=== PATIENT | female | born 1940 | race Caucasian/White ===

== ENCOUNTER 2018-05-13 12:30 | Emergency (ER) | payer MEDICARE, BC, OTHER ==
[2018-05-13 15:37] LABS: BASO % 0.2 % (0.0-1.0); EOS % 0.3 % (0.0-3.0); HEMATOCRIT 40.9 % (36.0-47.0); HEMOGLOBIN 13.4 g/dl (12.0-15.5); IMMATURE GRANULOCYTE % 0.4 % (0-3.0); LYMPH # 1.2 10^3/uL (1.5-4.5); LYMPH % 10.8 % (24.0-44.0); MEAN CORPUSCULAR HEMOGLOBIN 27.8 pg (27.0-33.0); MEAN CORPUSCULAR HGB CONC 32.8 g/dl (32.0-36.5); MEAN CORPUSCULAR VOLUME 84.9 fl (80.0-96.0); MONO # 0.8 10^3/uL (0.0-0.8); MONO % 7.2 % (0.0-5.0); NEUTROPHILS # 9.2 10^3/uL (1.8-7.7); NEUTROPHILS % 81.1 % (36.0-66.0); PLATELET COUNT, AUTOMATED 270 10^3/uL (150-450); RED BLOOD COUNT 4.82 10^6/uL (4.00-5.40); RED CELL DISTRIBUTION WIDTH 13.4 % (11.5-14.5); WHITE BLOOD COUNT 11.4 10^3/uL (4.0-10.0)
[2018-05-13 15:56] LABS: ANION GAP 11 MEQ/L (8-16); BLOOD UREA NITROGEN 16 MG/DL (7-18); CALCIUM LEVEL 9.6 MG/DL (8.8-10.2); CARBON DIOXIDE LEVEL 28 MEQ/L (21-32); CHLORIDE LEVEL 100 MEQ/L (98-107); CK-MB VALUE MASS 1.1 NG/ML (<3.6); CPK CREATINE PHOSPHOKINASE 72 U/L (26-192); CREATININE FOR GFR 0.87 MG/DL (0.55-1.30); GLOMERULAR FILTRATION RATE > 60.0 (>39); GLUCOSE, FASTING 102 MG/DL (70-100); MB/CK RELATIVE INDEX 1.52 (< OR =4); SODIUM LEVEL 139 MEQ/L (136-145); TROPONIN I < 0.02 NG/ML (< 0.10)
[2018-05-13 17:40] LABS: CPK CREATINE PHOSPHOKINASE 57 U/L (26-192); TROPONIN I 0.02 NG/ML (< 0.10)
[2018-05-13 17:41] LABS: CK-MB VALUE MASS 1.1 NG/ML (<3.6); MB/CK RELATIVE INDEX 1.92 (< OR =4)
[2018-05-13] MEDS: DIGOXIN INJ 0.5 MG/2 ML AMP (J1160) IV (18:08)
== END 2018-05-13 18:36 | disposition home or self-care (01) ==
LOC: M ED 12:30
DX: I47.1 Supraventricular tachycardia (principal); R94.31 Abnormal electrocardiogram [ECG] [EKG]; I10 Essential (primary) hypertension; E11.9 Type 2 diabetes mellitus without complications; M19.90 Unspecified osteoarthritis, unspecified site; Z79.84 Long term (current) use of oral hypoglycemic drugs; Z79.899 Other long term (current) drug therapy
CPT/HCPCS: J1160

== ENCOUNTER → 2020-03-16 | Outpatient (CLI) | payer MEDICARE, BC ==
[~2020-03-16] MED LIST: ALEVE PO; ATENPOW PO; CARV6.25; CHLO125TA; COUM1TAB18 PO; DIGO0.123 PO; FLOXETINE; HYZA100T2 PO; INVO100T; JANUVIA PO; METFORMIN PO; NORCOBULK FT; NORV2TAB PO; PAIN PATCH TOP; PERC10TA PO; PERC7.5T12 PO; PRIL20CA PO; PROZAC PO; RANITIDINE PO; SPIR-10; SYSTANE EYE OU; TYLE325T5 PO; ZYRTEC PO; [UNRECOGNIZED DRUG - OTHER] PO; [UNRECOGNIZED DRUG - OTHER] PO; [UNRECOGNIZED DRUG - SUPPLY] TOP
--- NOTE | 2020-03-16 09:49 | REP ---
RIGHT UPPER QUADRANT SONOGRAPHY: HISTORY: Nausea. No comparison study. FINDINGS: Scanning through the right upper quadrant of the abdomen demonstrates a somewhat echogenic liver consistent with fatty infiltration. There is an area of sparing centrally in the liver near the main portal vein. Common bile duct is normal measuring 0.3 cm in greatest diameter. The gallbladder is normal in size with smooth thin wall. No stone or polyp. Limited views of the pancreas show no focal abnormality. There is no evidence of ascites or right renal abnormality. Right kidney measures 10.9 x 4.5 x 4.8 cm. Exam quality was inhibited some degree by patient body habitus and overlying bowel gas. IMPRESSION: Findings consistent with fatty infiltration of the liver. Otherwise negative.
== END ==
LOC: M WHC 08:00
PROVIDERS: ATTEND Family Medicine
DX: R11.0 Nausea (principal)

== ENCOUNTER 2020-04-25 19:00 | Inpatient (IN) | payer MEDICARE, BC, OTHER ==
[2020-04-25] MEDS ORDERED: ADENOSINE 6MG/2ML INJECTION (J0153) As Ordered ONE ×2 (19:50→20:25)
[2020-04-25] MEDS ORDERED: NITROGLYCERIN 0.4 MG SUBL TABLET ONE (20:00)
[2020-04-25] MEDS ORDERED: FLECAINIDE 50MG TABLET ONE (20:00)
[2020-04-25] MEDS ORDERED: ADENOSINE 6MG/2ML INJECTION (J0153) ONE (20:00)
[2020-04-25] MEDS ORDERED: ASPIRIN 81 MG CHEW TABLET ONE (20:00)
[2020-04-25] MEDS ORDERED: MAGNESIUM OXIDE 400 MG TAB (MAG-OX) ONE (20:00)
[2020-04-25] MEDS ORDERED: ASPIRIN 81 MG CHEW TABLET As Ordered ONE (20:01)
[2020-04-25] MEDS ORDERED: NITROGLYCERIN 0.4 MG SUBL TABLET As Ordered ONE (20:01)
[2020-04-25] MEDS ORDERED: FLECAINIDE 50MG TABLET As Ordered ONE (20:45)
[2020-04-25] MEDS ORDERED: MAGNESIUM OXIDE 400 MG TAB (MAG-OX) As Ordered ONE (21:30)
[2020-04-25] MEDS ORDERED: ISOVUE-370 76% 100ML VIAL As Ordered ONE (21:37)
[2020-04-26] MEDS ORDERED: MAGNESIUM SULFATE 1GM/100ML D5W BAG (10MG/ML) As Ordered ONE
[2020-04-26] MEDS ORDERED: AMIODARONE HCL 150 MG/100 ML PREMIXED BAG (NEXTERONE) (J0282 PER 30MG) As Ordered ONE (00:18)
[2020-04-26] MEDS ORDERED: ACETAMINOPHEN TAB 650MG DOSE (2X325MG) ONE (01:23)
[2020-04-26] MEDS ORDERED: HEPARIN SOD (PORCINE) 5000UNITS/ML VIAL (J1644 PER 1000UNITS) ONE ×3 (01:23→12:00)
[2020-04-26] MEDS ORDERED: HEPARIN SOD (PORCINE) 5000UNITS/ML VIAL (J1644 PER 1000UNITS) As Ordered ONE ×3 (04:34→22:48)
[2020-04-26] MEDS ORDERED: cefTRIAXone SOD 1GM VIAL (J0696 PER 250MG) As Ordered ONE (04:34)
[2020-04-26] MEDS ORDERED: FLUoxetine 20 MG CAP As Ordered ONE (07:42)
[2020-04-26] MEDS ORDERED: MAGNESIUM SULFATE 1GM/100ML D5W BAG (10MG/ML) ONE (12:00)
[2020-04-26] MEDS ORDERED: cefTRIAXone SOD 1GM VIAL (J0696 PER 250MG) ONE (12:00)
[2020-04-26] MEDS ORDERED: FLUoxetine 20 MG CAP ONE (12:00)
[2020-04-26] MEDS ORDERED: AMIODARONE HCL 150 MG/100 ML PREMIXED BAG (NEXTERONE) (J0282 PER 30MG) ONE (12:00)
[2020-04-26] MEDS ORDERED: ACETAMINOPHEN TAB 650MG DOSE (2X325MG) As Ordered ONE (20:18)
[2020-04-27] MEDS ORDERED: HumaLOG INSULIN (NovoLOG) PER UNIT ONE (01:40)
[2020-04-27] MEDS ORDERED: CARVedilol 6.25 MG TAB ONE ×2 (01:40→09:30)
[2020-04-27] MEDS ORDERED: HEPARIN SOD (PORCINE) 5000UNITS/ML VIAL (J1644 PER 1000UNITS) ONE ×3 (01:40→09:30)
[2020-04-27] MEDS ORDERED: SPIRONOLACTONE 12.5MG PER 1/2 TABLET ONE (01:40)
[2020-04-27] MEDS ORDERED: DOCUSATE SODIUM 100 MG CAP ONE ×2 (01:40→09:30)
[2020-04-27] MEDS ORDERED: DIGOXIN 0.25 MG TAB ONE (01:40)
[2020-04-27] MEDS ORDERED: FLECAINIDE 50MG TABLET ONE ×2 (01:40→09:30)
[2020-04-27] MEDS ORDERED: HEPARIN SOD (PORCINE) 5000UNITS/ML VIAL (J1644 PER 1000UNITS) As Ordered ONE ×3 (05:10→21:30)
[2020-04-27] MEDS ORDERED: cefTRIAXone SOD 1GM VIAL (J0696 PER 250MG) ONE (05:10)
[2020-04-27] MEDS ORDERED: cefTRIAXone SOD 1GM VIAL (J0696 PER 250MG) As Ordered ONE (05:11)
[2020-04-27] MEDS ORDERED: CHLORTHALIDONE 12.5MG PER 1/2 TABLET ONE (13:00)
[2020-04-27] MEDS ORDERED: FLECAINIDE 50MG TABLET As Ordered ONE ×2 (13:40→21:31)
[2020-04-27] MEDS ORDERED: DOCUSATE SODIUM 100 MG CAP As Ordered ONE ×2 (13:40→21:31)
[2020-04-27] MEDS ORDERED: CARVedilol 6.25 MG TAB As Ordered ONE ×2 (13:40→21:31)
[2020-04-27] MEDS ORDERED: SPIRONOLACTONE 12.5MG PER 1/2 TABLET As Ordered ONE (13:41)
[2020-04-27] MEDS ORDERED: DIGOXIN 0.25 MG TAB As Ordered ONE (13:41)
[2020-04-27] MEDS ORDERED: HumaLOG INSULIN (NovoLOG) PER UNIT As Ordered ONE (13:42)
[2020-04-28] MEDS ORDERED: HEPARIN SOD (PORCINE) 5000UNITS/ML VIAL (J1644 PER 1000UNITS) As Ordered ONE (06:42)
[2020-04-28] MEDS ORDERED: DOCUSATE SODIUM 100 MG CAP As Ordered ONE (08:24)
[2020-04-28] MEDS ORDERED: ACETAMINOPHEN TAB 650MG DOSE (2X325MG) As Ordered ONE (08:24)
[2020-04-28] MEDS ORDERED: SPIRONOLACTONE 12.5MG PER 1/2 TABLET As Ordered ONE (08:25)
[2020-04-28] MEDS ORDERED: CARVedilol 6.25 MG TAB As Ordered ONE (08:25)
[2020-04-28] MEDS ORDERED: FLECAINIDE 50MG TABLET As Ordered ONE (08:25)
[2020-04-28] MEDS ORDERED: FLUoxetine 20 MG CAP As Ordered ONE (08:25)
[2020-04-28] MEDS ORDERED: DIGOXIN 0.125 MG TAB As Ordered ONE (08:26)
[2020-04-28] MEDS ORDERED: HumaLOG INSULIN (NovoLOG) PER UNIT As Ordered ONE ×2 (08:26→11:48)
[2020-04-28] MEDS ORDERED: CHLORTHALIDONE 12.5MG PER 1/2 TABLET ONE (13:00)
== END 2020-04-28 18:30 | disposition home or self-care (01) | DRG 310 ==
LOC: M ED 19:00 → M PCU 23:04
PROVIDERS: ADMIT Internal Medicine; ATTEND Internal Medicine
DX: I47.1 Supraventricular tachycardia (principal); E11.9 Type 2 diabetes mellitus without complications; I10 Essential (primary) hypertension; F32.9 Major depressive disorder, single episode, unspecified; I48.91 Unspecified atrial fibrillation; I44.0 Atrioventricular block, first degree; Z79.899 Other long term (current) drug therapy

== ENCOUNTER → 2020-07-15 | Outpatient (CLI) | payer MEDICARE, BC, OTHER ==
[~2020-07-15] MED LIST changes: +FLEC25TA; +JARD1TAB; +OMEP-221
== END ==
LOC: M LABSMTC 10:42
PROVIDERS: ATTEND Anesthesiology
DX: Z20.828 Contact with and (suspected) exposure to other viral communicable diseases (principal)
CPT/HCPCS: C9803; U0003

== ENCOUNTER 2020-07-20 12:54 | Day surgery (SDC) | payer MEDICARE, BC, OTHER ==
[~2020-07-20] VITALS: Ht 152.4 cm; Wt 75.7 kg
[~2020-07-20 12:54] MED LIST changes: +NS 1,000 ML IV ONE
[2020-07-20] MEDS ORDERED: propofoL 200 MG/20 ML VIAL As Ordered ONE (13:33)
[2020-07-20] MEDS ORDERED: LIDOCAINE 2% 100MG/5ML SDV (FOR ANES.) As Ordered ONE (13:33)
[2020-07-20] MEDS ORDERED: LABETALOL 100MG/20ML VIAL As Ordered ONE (15:01)
[2020-07-20] MEDS ORDERED: fentaNYL 100 MCG/2 ML INJECTION (J3010) As Ordered ONE (15:03)
[2020-07-20] MEDS ORDERED: hydrALAZINE 20MG/ML 1ML VIAL (J0360 PER 20MG) As Ordered ONE (15:10)
[2020-07-20 15:45] VITALS: BP 127/60
--- NOTE | 2020-07-20 16:03 | ROOR ---
Patient Name: Ladan Cerda Procedure Date: 07/20/2020 2:57 PM Date of : 1940 Age: 79 Room: [facility] Gender: Female Note Status: Finalized Procedure: Upper GI endoscopy Indications: Nausea Providers: Agustín Villa MD Referring MD: Joselo Tracy MD Requesting Provider: Medicines: Monitored Anesthesia Care Complications: No immediate complications. Procedure: Pre-Anesthesia Assessment: - Prior to the procedure, a History and Physical was performed, and patient medications and allergies were reviewed. The patient is competent. The risks and benefits of the procedure and the sedation options and risks were discussed with the patient. All questions were answered and informed consent was obtained. Patient identification and proposed procedure were verified by the physician, the nurse and the anesthesiologist in the procedure room. Mental Status Examination: alert and oriented. Airway Examination: normal oropharyngeal airway and neck mobility. Respiratory Examination: clear to auscultation. CV Examination: normal. Prophylactic Antibiotics: The patient does not require prophylactic antibiotics. Prior Anticoagulants: The patient has taken no previous anticoagulant or antiplatelet agents. ASA Grade Assessment: II - A patient with mild systemic disease. After reviewing the risks and benefits, the patient was deemed in satisfactory condition to undergo the procedure. The anesthesia plan was to use monitored anesthesia care (MAC). Immediately prior to administration of medications, the patient was re-assessed for adequacy to receive sedatives. The heart rate, respiratory rate, oxygen saturations, blood pressure, adequacy of pulmonary ventilation, and response to care were monitored throughout the procedure. The physical status of the patient was re-assessed after the procedure. The Endoscope was introduced through the mouth, and advanced to the second part of duodenum. The upper GI endoscopy was accomplished without difficulty. The patient tolerated the procedure well. Findings: The examined esophagus was normal. A small hiatal hernia was present. Scattered mild inflammation characterized by erythema and granularity was found in the gastric antrum. Biopsies were taken with a cold forceps for histology. Verification of patient identification for the specimen was done by the physician and nurse using the patient's name, date and medical record number. Estimated blood loss was minimal. No gross lesions were noted in the duodenal bulb and in the second portion of the duodenum. Biopsies for histology were taken with a cold forceps for evaluation of celiac disease. Impression: - Normal esophagus. - Small hiatal hernia. - Gastritis. Biopsied. - No gross lesions in the duodenal bulb and in the second portion of the duodenum. Biopsied. Recommendation: - Patient has a contact number available for emergencies. The signs and symptoms of potential delayed complications were discussed with the patient. Return to normal activities tomorrow. Written discharge instructions were provided to the patient. - High fiber diet. - Continue present medications. - Await pathology results. - Use Pepcid (famotidine) 20 mg PO Twice daily ( take city collector on empty stomach and at bedtime) for 6 weeks. - Follow an antireflux regimen. - Telephone GI clinic for pathology results in 2 weeks. - Return to primary care physician. Agustín Villa MD Agustín Villa MD 07/20/2020 4:03:04 PM Electronically signed by Agustín Villa MD Number of Addenda: 0 Note Initiated On: 07/20/2020 2:57 PM Estimated Blood Loss: Estimated blood loss was minimal.
== END 2020-07-20 16:11 | disposition home or self-care (01) ==
LOC: M OPP 12:54
PROVIDERS: ATTEND Internal Medicine Gastroenterology
DX: K44.9 Diaphragmatic hernia without obstruction or gangrene (principal); K29.70 Gastritis, unspecified, without bleeding; I10 Essential (primary) hypertension; E11.9 Type 2 diabetes mellitus without complications; I47.1 Supraventricular tachycardia; Z79.84 Long term (current) use of oral hypoglycemic drugs; Z79.899 Other long term (current) drug therapy
CPT/HCPCS: 43239; 88305; J0360; J3010

== ENCOUNTER 2021-03-15 08:31 | Emergency (ER) | payer MEDICARE, BC, OTHER ==
[~2021-03-15] VITALS: Ht 152.4 cm; Wt 72.7 kg
[~2021-03-15 08:31] MED LIST changes: -NS 1,000 ML IV ONE
[2021-03-15] MEDS ORDERED: FLUO40CA (08:44)
[2021-03-15] MEDS ORDERED: AMLO1TAB24 (08:44)
[2021-03-15] MEDS ORDERED: MAGN250T11 (08:44)
--- NOTE | 2021-03-15 10:18 | REPVR ---
PROCEDURE INFORMATION: Exam: CT Cervical Spine Without Contrast Exam date and time: 03/15/2021 9:45 AM Age: 80 years old Clinical indication: Injury or trauma; Fall; Blunt trauma; Additional info: Fall, injury to left maxilla TECHNIQUE: Imaging protocol: Computed tomography images of the cervical spine without contrast. Radiation optimization: All CT scans at this facility use at least one of these dose optimization techniques: automated exposure control; mA and/or kV adjustment per patient size (includes targeted exams where dose is matched to clinical indication); or iterative reconstruction. COMPARISON: No relevant prior studies available. FINDINGS: Bones/joints: No acute fracture. Reversal of normal cervical lordosis likely secondary to muscular spasm or positioning. Diffuse demineralization of the bones. Multilevel degenerative changes with anterior osteophyte formation, facet joint arthropathy, and loss of disc spaces at multiple levels. Discs/Spinal canal/Neural foramina: Posterior disc osteophyte formation at multiple levels causing mild to moderate central spinal canal stenosis and neural foraminal narrowing. Lungs: Lung apices are normal. Soft tissues: Unremarkable. IMPRESSION: No acute fracture or traumatic subluxation. Multilevel degenerative changes as described above. Electronically signed by: Charley Hadley On 03/15/2021 10:17:53 AM
--- NOTE | 2021-03-15 10:19 | REPVR ---
PROCEDURE INFORMATION: Exam: CT Maxillofacial Without Contrast Exam date and time: 03/15/2021 9:45 AM Age: 80 years old Clinical indication: Injury or trauma; Fall; Blunt trauma (contusions or hematomas); Maxilla; Additional info: Fall, injury to left maxilla TECHNIQUE: Imaging protocol: Computed tomography images of the face without contrast. Radiation optimization: All CT scans at this facility use at least one of these dose optimization techniques: automated exposure control; mA and/or kV adjustment per patient size (includes targeted exams where dose is matched to clinical indication); or iterative reconstruction. COMPARISON: MRI-Brain W/O FOLL BY WITH 12/13/2015 8:35 AM FINDINGS: Orbital cavity: Orbits are normal. Globes are unremarkable. Bones/joints: No acute fracture. Paranasal sinuses: Mild mucosal thickening of the right maxillary sinus. Soft tissues: Unremarkable. IMPRESSION: No acute fracture or traumatic subluxation. Electronically signed by: Charley Hadley On 03/15/2021 10:19:30 AM
--- NOTE | 2021-03-15 10:21 | REPVR ---
PROCEDURE INFORMATION: Exam: CT Head Without Contrast Exam date and time: 03/15/2021 9:45 AM Age: 80 years old Clinical indication: Injury or trauma; Fall; Blunt trauma (contusions or hematomas); Additional info: Fall, injury to left maxilla TECHNIQUE: Imaging protocol: Computed tomography of the head without contrast. Radiation optimization: All CT scans at this facility use at least one of these dose optimization techniques: automated exposure control; mA and/or kV adjustment per patient size (includes targeted exams where dose is matched to clinical indication); or iterative reconstruction. COMPARISON: MRI-Brain W/O FOLL BY WITH 12/13/2015 8:35 AM FINDINGS: Brain: There is no acute intracranial abnormality. Mild small vessel ischemic changes are seen. There is no mass, midline shift, or mass effect. Jeffrey-white matter differentiation is preserved. There is no evidence of hemorrhage. There is no extra-axial fluid collection. Basal cisterns are patent. Cerebral ventricles: Mild prominence of ventricles and sulci representing volume loss. Paranasal sinuses: Visualized sinuses are clear. Mastoid air cells: Mastoid air cells are clear. Bones/joints: The visualized osseous structures are unremarkable. Soft tissues: Unremarkable. IMPRESSION: 1. Mild volume loss and small vessel ischemic changes. . 2. No acute intracranial abnormality. Electronically signed by: Charley Hadley On 03/15/2021 10:21:46 AM
--- NOTE | 2021-03-15 10:39 | REP ---
INDICATION: fall COMPARISON: None. TECHNIQUE: Five views left elbow. FINDINGS: There is no evidence of acute fracture, dislocation, or intrinsic bone disease. IMPRESSION: No fracture or dislocation. <Electronically signed by Trace Jeffrey > 03/15/21 [id number]
--- NOTE | 2021-03-15 10:43 | REP ---
INDICATION: fall COMPARISON: 02/12/2013. TECHNIQUE: Four views left knee. 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 There is subtle lucency underneath the tibial component peripherally at the medial tibial plateau. Some degree of loosening cannot be excluded. IMPRESSION: No fracture or dislocation. Subtle lucency at the interface between the tibial component of the knee prosthesis and medial tibial plateau could indicate some degree of loosening. <Electronically signed by Trace Jeffrey > 03/15/21 [id number]
[2021-03-15] MEDS ORDERED: ACETAMINOPHEN 500 MG TAB PO ONE (11:05)
[2021-03-15 11:27] VITALS: BP 159/81
--- NOTE | 2021-03-15 12:50 | ED PDOC ---
Post-Departure Follow-Up left knee film faxed to dr [email or web address] for fu Ekta Hwang MD Mar 15, 2021 12:50
== END 2021-03-15 11:31 | disposition home or self-care (01) ==
LOC: EDBD 08:31 → M ED 08:31
DX: S00.93XA Contusion of unspecified part of head, initial encounter (principal); W01.0XXA Fall on same level from slipping, tripping and stumbling without subsequent striking against object, initial encounter; Y92.9 Unspecified place or not applicable; Y93.9 Activity, unspecified; Y99.9 Unspecified external cause status; E11.9 Type 2 diabetes mellitus without complications; I10 Essential (primary) hypertension

== ENCOUNTER 2021-10-30 09:24 | Observation (INO) | payer MEDICARE, BC, OTHER ==
[~2021-10-30] VITALS: Ht 157.5 cm; Wt 73.6 kg
[~2021-10-30 09:24] MED LIST changes: +AMLO1TAB24 PO; -CARV6.25; +CARV6.25 PO; -FLEC25TA; +FLEC25TA PO; +FLUO40CA PO; -JARD1TAB; +JARD1TAB PO; +MAGN250T11 PO; -OMEP-221; +OMEP40CA5 PO
[2021-10-30] MEDS ORDERED: NS 1,000 ML IV ONE (09:55)
[2021-10-30 10:33] LABS: BASO % 0.3 % (0.0-1.0); EOS # 0.1 10^3/uL (0.0-0.5); EOS % 0.4 % (0.0-3.0); HEMATOCRIT 45.5 % (36.0-47.0); HEMOGLOBIN 14.2 g/dl (12.0-15.5); LYMPH # 0.9 10^3/uL (1.5-5.0); LYMPH % 7.2 % (24.0-44.0); MEAN CORPUSCULAR HEMOGLOBIN 26.8 pg (27.0-33.0); MEAN CORPUSCULAR HGB CONC 31.2 g/dl (32.0-36.5); MONO # 0.4 10^3/uL (0.0-0.8); MONO % 3.5 % (2.0-8.0); NEUTROPHILS # 10.5 10^3/uL (1.5-8.5); NEUTROPHILS % 88.2 % (36.0-66.0); PLATELET COUNT, AUTOMATED 307 10^3/uL (150-450); RED BLOOD COUNT 5.29 10^6/uL (4.00-5.40); WHITE BLOOD COUNT 11.9 10^3/uL (4.0-10.0)
[2021-10-30] MEDS ORDERED: MECLIZINE 25 MG TABLET PO ONE (10:40)
[2021-10-30 10:47] LABS: INR 0.92; PROTHROMBIN TIME 12.8 SECONDS (12.7-14.5)
[2021-10-30 11:05] LABS: ALBUMIN 3.6 GM/DL (3.2-5.2); ALT/SGPT 19 U/L (12-78); BILIRUBIN,DIRECT < 0.1 MG/DL (0.0-0.2); BILIRUBIN,TOTAL 0.3 MG/DL (0.2-1.0); BLOOD UREA NITROGEN 15 MG/DL (7-18); CALCIUM LEVEL 9.2 MG/DL (8.8-10.2); CARBON DIOXIDE LEVEL 29 MEQ/L (21-32); CHLORIDE LEVEL 102 MEQ/L (98-107); CREATININE FOR GFR 0.68 MG/DL (0.55-1.30); GLOMERULAR FILTRATION RATE > 60.0 (>32); GLUCOSE, FASTING 166 MG/DL (70-100); POTASSIUM SERUM 4.5 MEQ/L (3.5-5.1); SODIUM LEVEL 139 MEQ/L (136-145); TOTAL PROTEIN 7.1 GM/DL (6.4-8.2)
[2021-10-30 11:08] LABS: CK-MB VALUE MASS < 1.0 NG/ML (<3.6); CPK CREATINE PHOSPHOKINASE 70 U/L (26-192); MB/CK RELATIVE INDEX 1.43 (< OR =4)
[2021-10-30] MEDS ORDERED: diazePAM 10MG/2ML SYRINGE (J3360 PER 5MG) IV ONE (11:20)
[2021-10-30 11:21] LABS: RSV AMPLIFICATION NEGATIVE (NEGATIVE)
[2021-10-30] MEDS ORDERED: DIGO0.123 PO (13:22)
[2021-10-30] MEDS ORDERED: METF10004 PO (13:22)
[2021-10-30] MEDS ORDERED: MAALOX 30 ML SUSP *UDC PO PRN (13:25)
[2021-10-30] MEDS ORDERED: MOM 30ML SUSPENSION UDC PO PRN (13:25)
[2021-10-30] MEDS ORDERED: GLUCOSE 4GM CHEW TABLET PO PRN (13:25)
[2021-10-30] MEDS ORDERED: GLUCAGON INJ 1MG VIAL SC PRN (13:25)
[2021-10-30] MEDS ORDERED: DEXTROSE 50% 50 ML SYRINGE IV PRN (13:25)
[2021-10-30] MEDS ORDERED: HOME MED LIST COMPLETE! XX SCH (13:30)
[2021-10-30] MEDS ORDERED: ALEV220T22 PO (13:30)
[2021-10-30] MEDS: CARVedilol 6.25 MG TAB PO SCH ×2 (14:18→20:51)
[2021-10-30] MEDS: OMEPRAZOLE 20MG CAP PO SCH (14:18)
[2021-10-30] MEDS: amLODIPine 5 MG TAB PO SCH (14:19)
[2021-10-30] MEDS: DIGOXIN 0.125 MG TAB PO SCH (14:19)
[2021-10-30] MEDS: ACETAMINOPHEN TAB 650MG DOSE (2X325MG) PO PRN (14:19)
[2021-10-30] MEDS ORDERED: ONDANSETRON 4MG/2ML VIAL IV PRN (14:20)
[2021-10-30 15:00] VITALS: BP 188/90
[2021-10-30] MEDS: HumaLOG INSULIN (NovoLOG) PER UNIT SC SCH ×2 (17:34→23:49)
[2021-10-30] MEDS ORDERED: NAPROXEN 250 MG TAB PO ONE (17:55)
[2021-10-30] MEDS: MECLIZINE 25 MG TABLET PO PRN (18:13)
[2021-10-30 20:22] VITALS: BP 158/70
[2021-10-30] MEDS: FLECAINIDE 50MG TABLET PO SCH (20:51)
[2021-10-30] MEDS: DOCUSATE SODIUM 100MG CAPSULE PO SCH (20:51)
[2021-10-30 23:50] VITALS: BP 144/68
[2021-10-31] VITALS (9 sets, daily range): BP systolic 113–185; BP diastolic 56–86
[2021-10-31] MEDS: HumaLOG INSULIN (NovoLOG) PER UNIT SC SCH ×4 (05:39→21:41)
[2021-10-31 06:50] LABS: BASO % 0.4 % (0.0-1.0); EOS # 0.1 10^3/uL (0.0-0.5); EOS % 1.3 % (0.0-3.0); HEMATOCRIT 42.3 % (36.0-47.0); HEMOGLOBIN 13.5 g/dl (12.0-15.5); LYMPH # 1.7 10^3/uL (1.5-5.0); LYMPH % 19.1 % (24.0-44.0); MEAN CORPUSCULAR HEMOGLOBIN 27.4 pg (27.0-33.0); MEAN CORPUSCULAR HGB CONC 31.9 g/dl (32.0-36.5); MONO # 0.8 10^3/uL (0.0-0.8); MONO % 8.4 % (2.0-8.0); NEUTROPHILS # 6.4 10^3/uL (1.5-8.5); NEUTROPHILS % 70.3 % (36.0-66.0); PLATELET COUNT, AUTOMATED 309 10^3/uL (150-450); RED BLOOD COUNT 4.92 10^6/uL (4.00-5.40); WHITE BLOOD COUNT 9.1 10^3/uL (4.0-10.0)
[2021-10-31 07:26] LABS: BLOOD UREA NITROGEN 17 MG/DL (7-18); CARBON DIOXIDE LEVEL 29 MEQ/L (21-32); CHLORIDE LEVEL 103 MEQ/L (98-107); CREATININE FOR GFR 0.68 MG/DL (0.55-1.30); GLOMERULAR FILTRATION RATE > 60.0 (>32); GLUCOSE, FASTING 103 MG/DL (70-100); MAGNESIUM LEVEL 1.8 MG/DL (1.8-2.4); POTASSIUM SERUM 3.9 MEQ/L (3.5-5.1); SODIUM LEVEL 138 MEQ/L (136-145)
[2021-10-31] MEDS: OMEPRAZOLE 20MG CAP PO SCH (08:12)
[2021-10-31] MEDS: ACETAMINOPHEN TAB 650MG DOSE (2X325MG) PO PRN (08:12)
[2021-10-31] MEDS: DOCUSATE SODIUM 100MG CAPSULE PO SCH ×2 (08:12→21:41)
[2021-10-31] MEDS: ENOXAPARIN 40MG/0.4ML SYRINGE (J1650 PER 10MG) SC SCH (08:12)
[2021-10-31] MEDS: CARVedilol 6.25 MG TAB PO SCH ×2 (08:13→21:00)
[2021-10-31] MEDS: FLUoxetine 20 MG CAP PO SCH (08:13)
[2021-10-31] MEDS: DIGOXIN 0.125 MG TAB PO SCH (08:13)
[2021-10-31] MEDS: FLECAINIDE 50MG TABLET PO SCH ×2 (08:14→21:41)
[2021-10-31] MEDS: amLODIPine 5 MG TAB PO SCH (08:14)
[2021-10-31] MEDS ORDERED: amLODIPine 5 MG TAB PO ONE (11:15)
[2021-10-31] MEDS: MECLIZINE 25 MG TABLET PO PRN (12:49)
[2021-11-01] VITALS: BP 150/66
[2021-11-01 04:00] VITALS: BP 116/72
[2021-11-01 06:30] LABS: BASO % 0.5 % (0.0-1.0); EOS # 0.1 10^3/uL (0.0-0.5); EOS % 1.1 % (0.0-3.0); HEMOGLOBIN 13.7 g/dl (12.0-15.5); LYMPH # 1.6 10^3/uL (1.5-5.0); LYMPH % 19.5 % (24.0-44.0); MEAN CORPUSCULAR HEMOGLOBIN 26.4 pg (27.0-33.0); MEAN CORPUSCULAR HGB CONC 31.1 g/dl (32.0-36.5); MEAN CORPUSCULAR VOLUME 84.9 fl (80.0-96.0); MONO # 0.7 10^3/uL (0.0-0.8); NEUTROPHILS # 5.7 10^3/uL (1.5-8.5); NEUTROPHILS % 69.5 % (36.0-66.0); PLATELET COUNT, AUTOMATED 296 10^3/uL (150-450); RED BLOOD COUNT 5.18 10^6/uL (4.00-5.40); WHITE BLOOD COUNT 8.2 10^3/uL (4.0-10.0)
[2021-11-01 06:58] LABS: BLOOD UREA NITROGEN 15 MG/DL (7-18); CALCIUM LEVEL 9.4 MG/DL (8.8-10.2); CARBON DIOXIDE LEVEL 29 MEQ/L (21-32); CHLORIDE LEVEL 103 MEQ/L (98-107); CREATININE FOR GFR 0.72 MG/DL (0.55-1.30); GLOMERULAR FILTRATION RATE > 60.0 (>32); GLUCOSE, FASTING 133 MG/DL (70-100); MAGNESIUM LEVEL 1.8 MG/DL (1.8-2.4); POTASSIUM SERUM 3.8 MEQ/L (3.5-5.1); SODIUM LEVEL 137 MEQ/L (136-145)
[2021-11-01] MEDS: OMEPRAZOLE 20MG CAP PO SCH (08:05)
[2021-11-01] MEDS: ENOXAPARIN 40MG/0.4ML SYRINGE (J1650 PER 10MG) SC SCH (08:05)
[2021-11-01] MEDS: FLUoxetine 20 MG CAP PO SCH (08:05)
[2021-11-01] MEDS: HumaLOG INSULIN (NovoLOG) PER UNIT SC SCH ×2 (08:05→12:18)
[2021-11-01] MEDS: DOCUSATE SODIUM 100MG CAPSULE PO SCH (08:05)
[2021-11-01 08:07] VITALS: BP 120/72
[2021-11-01] MEDS: CARVedilol 6.25 MG TAB PO SCH (08:07)
[2021-11-01] MEDS: ACETAMINOPHEN TAB 650MG DOSE (2X325MG) PO PRN (08:07)
[2021-11-01] MEDS: FLECAINIDE 50MG TABLET PO SCH (08:08)
[2021-11-01] MEDS: DIGOXIN 0.125 MG TAB PO SCH (08:08)
[2021-11-01 08:17] VITALS: BP 120/72
[2021-11-01] MEDS ORDERED: AMLO1TAB25 PO (10:21)
[2021-11-01] MEDS ORDERED: ONDA4TAB6 PO (10:21)
[2021-11-01] MEDS ORDERED: MECL1TAB31 PO (10:53)
[2021-11-01 12:01] VITALS: BP 118/68
== END 2021-11-01 14:44 | disposition home health service (06) ==
LOC: M ED 09:24 → M ED INP 09:25 → ENRESERV 14:23 → M PCU 15:00
PROVIDERS: ADMIT Internal Medicine; ATTEND Internal Medicine
DX: R42 Dizziness and giddiness (principal); I16.0 Hypertensive urgency; D72.829 Elevated white blood cell count, unspecified; I47.1 Supraventricular tachycardia; I10 Essential (primary) hypertension; E11.9 Type 2 diabetes mellitus without complications; M19.90 Unspecified osteoarthritis, unspecified site; F32.9 Major depressive disorder, single episode, unspecified; K21.9 Gastro-esophageal reflux disease without esophagitis; I67.82 Cerebral ischemia; G31.9 Degenerative disease of nervous system, unspecified; K59.00 Constipation, unspecified; R51.9 Headache, unspecified; R11.2 Nausea with vomiting, unspecified; R53.1 Weakness; Z79.899 Other long term (current) drug therapy; Z79.84 Long term (current) use of oral hypoglycemic drugs
CPT/HCPCS: 36415; 70450; 70551; 71045; 80048; 80076; 80162; 82550; 82553; 83735; 84484; 85025; 85610; 85730; 87631; 93041; 94760; 96361; 96372; 96374; 97116; 97161; 97165; 97530; 97535; 99285; G0378; J1650; J3360

== ENCOUNTER → 2022-06-09 | Outpatient (CLI) | payer MEDICARE, BC, OTHER ==
[~2022-06-09] MED LIST changes: +ALEV220T22 PO; +AMLO1TAB25 PO; +MECL1TAB31 PO; +METF10004 PO; +ONDA4TAB6 PO
== END ==
LOC: M CLY 14:28
PROVIDERS: ATTEND Family Medicine
DX: M54.42 Lumbago with sciatica, left side (principal)

== ENCOUNTER → 2023-03-13 | Outpatient (CLI) | payer MEDICARE, BC, OTHER | LOC: M CLY 13:45 | PROVIDERS: ATTEND Family Medicine | DX: M20.011 Mallet finger of right finger(s) (principal) ==

== ENCOUNTER 2023-08-22 11:10 | Emergency (ER) | payer MEDICARE, BC, OTHER ==
[~2023-08-22] VITALS: Ht 157.5 cm; Wt 71.9 kg
[2023-08-22 11:10] VITALS: TEMP 98.2
[~2023-08-22 11:10] MED LIST changes: +MECL-209 PO; -MECL1TAB31 PO
[2023-08-22] MEDS ORDERED: AMLO1TAB24 PO (11:36)
[2023-08-22] MEDS ORDERED: B-122500 PO (11:36)
[2023-08-22 12:03] LABS: BASO % 0.3 % (0.0-1.0); EOS # 0.1 10^3/uL (0.0-0.5); EOS % 1.1 % (0.0-3.0); HEMATOCRIT 47.5 % (36.0-47.0); HEMOGLOBIN 15.3 g/dl (12.0-15.5); LYMPH # 1.9 10^3/uL (1.5-5.0); LYMPH % 16.3 % (24.0-44.0); MEAN CORPUSCULAR HEMOGLOBIN 27.7 pg (27.0-33.0); MEAN CORPUSCULAR HGB CONC 32.2 g/dl (32.0-36.5); MEAN CORPUSCULAR VOLUME 85.9 fl (80.0-96.0); MONO # 0.9 10^3/uL (0.0-0.8); MONO % 7.4 % (2.0-8.0); NEUTROPHILS # 8.9 10^3/uL (1.5-8.5); NEUTROPHILS % 74.5 % (36.0-66.0); PLATELET COUNT, AUTOMATED 312 10^3/uL (150-450); RED BLOOD COUNT 5.53 10^6/uL (4.00-5.40); WHITE BLOOD COUNT 11.9 10^3/uL (4.0-10.0)
[2023-08-22 12:12] LABS: INR 1.03; PROTHROMBIN TIME 13.2 SECONDS (12.5-14.5)
[2023-08-22] MEDS ORDERED: NITROGLYCERIN 0.4MG SUBL TABLET SL STA (12:21)
[2023-08-22] MEDS ORDERED: ASPIRIN 81MG CHEW TABLET PO ONE (12:25)
[2023-08-22 12:26] LABS: CK-MB VALUE MASS < 1.0 NG/ML (<3.6); LIPASE 28 U/L (12-53)
[2023-08-22 12:28] LABS: ALBUMIN 3.7 G/DL (3.2-5.2); ALKALINE PHOSPHATASE 92 U/L (46-116); ALT/SGPT 14 U/L (7.0-40); AST/SGOT 13 U/L (<34); BILIRUBIN,DIRECT 0.1 MG/DL (<0.4); BILIRUBIN,TOTAL 0.5 MG/DL (0.3-1.2); BLOOD UREA NITROGEN 14 MG/DL (9-23); CALCIUM LEVEL 8.9 MG/DL (8.3-10.6); CARBON DIOXIDE LEVEL 26 MMOL/L (20-31); CHLORIDE LEVEL 104 MMOL/L (98-107); CPK CREATINE PHOSPHOKINASE 29 U/L (34-145); CREATININE FOR GFR 0.64 MG/DL (0.55-1.30); GLOMERULAR FILTRATION RATE > 60.0 (>32); GLUCOSE, FASTING 191 MG/DL (74-106); MB/CK RELATIVE INDEX 3.44 (< OR =4); SODIUM LEVEL 140 MMOL/L (136-145); TOTAL PROTEIN 6.9 G/DL (5.7-8.2)
[2023-08-22 12:29] LABS: FREE T4 1.16 NG/DL (0.89-1.76)
[2023-08-22 12:30] LABS: THYROID STIMULATING HORMONE 1.005 uIU/ML (0.55-4.78)
[2023-08-22] MEDS ORDERED: FLECAINIDE 50MG TABLET PO STA (12:31)
[2023-08-22] MEDS ORDERED: CARVedilol 6.25 MG TAB PO STA (12:31)
[2023-08-22] MEDS ORDERED: DIGOXIN 0.125 MG TAB PO ONE (12:35)
[2023-08-22] MEDS ORDERED: ISOVUE-370 76% 100ML VIAL As Ordered ONE (12:37)
[2023-08-22] MEDS: NITROGLYCERIN 0.4MG SUBL TABLET SL PRN ×2 (13:02→13:20)
[2023-08-22 13:45] LABS: CK-MB VALUE MASS < 1.0 NG/ML (<3.6)
[2023-08-22 13:48] LABS: CPK CREATINE PHOSPHOKINASE 26 U/L (34-145); MB/CK RELATIVE INDEX 3.84 (< OR =4)
[2023-08-22] MEDS ORDERED: ACETAMINOPHEN 325 MG TAB PO ONE (14:00)
[2023-08-22] MEDS ORDERED: SUCRALFATE SUSP 1GM/10ML UD PO ONE (14:00)
[2023-08-22] MEDS ORDERED: MAALOX 30 ML SUSP *UDC PO ONE (14:00)
[2023-08-22] MEDS ORDERED: PEPC1TAB5 PO (14:22)
[2023-08-22 14:30] VITALS: BP 131/70; O2SAT 95
== END 2023-08-22 14:53 | disposition home or self-care (01) ==
LOC: M ED 11:10
DX: R07.9 Chest pain, unspecified (principal); I10 Essential (primary) hypertension; K21.9 Gastro-esophageal reflux disease without esophagitis; I47.10 Supraventricular tachycardia, unspecified; F41.9 Anxiety disorder, unspecified; F32.9 Major depressive disorder, single episode, unspecified; Z79.899 Other long term (current) drug therapy
CPT/HCPCS: 36415; 71045; 71275; 80048; 80076; 80162; 82550; 82553; 83690; 83880; 84439; 84443; 84484; 85025; 85610; 93005; 93041; 94760; 99285; Q9967

== ENCOUNTER → 2025-01-05 | Outpatient (CLI) | payer MEDICARE, BC ==
[~2025-01-05] MED LIST changes: +B-122500 PO; +ONDA-282 PO; -ONDA4TAB6 PO; +PEPC1TAB5 PO
== END ==
LOC: M CARPUL 13:31
PROVIDERS: ATTEND Nurse Practitioner Family
DX: R01.1 Cardiac murmur, unspecified (principal)

== ENCOUNTER → 2025-05-11 | Outpatient (REF) | payer MEDICARE, BC ==
[2025-05-11 17:51] LABS: BASO # 0.1 10^3/uL (0.0-0.2); BASO % 0.5 % (0.0-1.0); EOS # 0.1 10^3/uL (0.0-0.5); EOS % 1.1 % (0.0-3.0); LYMPH # 1.7 10^3/uL (1.5-5.0); LYMPH % 15.2 % (24.0-44.0); MONO # 0.6 10^3/uL (0.0-0.8); MONO % 5.7 % (2.0-8.0); NEUTROPHILS # 8.7 10^3/uL (1.5-8.5); NEUTROPHILS % 77.2 % (36.0-66.0); PLATELET COUNT, AUTOMATED 254 10^3/uL (150-450)
[2025-05-11 17:55] LABS: ALT/SGPT 41.0 U/L (7.0-40); AST/SGOT 32.0 U/L (<34); CALCIUM LEVEL 9.7 MG/DL (8.3-10.6); CARBON DIOXIDE LEVEL 28.0 MMOL/L (20-31); CHLORIDE LEVEL 104.0 MMOL/L (98-107); CREATININE FOR GFR 0.67 MG/DL (0.55-1.30); GLOMERULAR FILTRATION RATE 86.1 (>32); POTASSIUM SERUM 4.4 MMOL/L (3.5-5.1); SODIUM LEVEL 142.0 MMOL/L (136-145)
[2025-05-11 17:56] LABS: FREE T4 1.27 NG/DL (0.89-1.76)
[2025-05-11 18:09] LABS: ESTIMATED AVERAGE GLUCOSE 189.0 MG/DL (60-110)
[2025-05-11 18:13] LABS: DIGOXIN LEVEL 0.2 NG/ML (0.8-2.0)
== END ==
LOC: M SFHCCLAY 10:57
PROVIDERS: ATTEND Nurse Practitioner Family
DX: R42 Dizziness and giddiness (principal); E11.9 Type 2 diabetes mellitus without complications; I10 Essential (primary) hypertension; I47.10 Supraventricular tachycardia, unspecified; Z79.899 Other long term (current) drug therapy